=== PATIENT | male | born 1970 | race African-American/Black ===

== ENCOUNTER 2019-03-31 01:30 | Inpatient (IN) | payer OTHER ==
[~2019-03-31] VITALS: Ht 182.9 cm; Wt 83.5 kg
--- NOTE | 2019-03-31 01:50 | NUR ---
TO BED 5 AMBULATORY C/O R ARM TINGLING SENSATION AND BURNING PAIN SINCE 1699. PT AAOX4 NO ACUTE DISTRESS NOTED, RESP EVEN AND UNLABORED. PUPILS PERRLA, PT ABLE TO MOVE ALL EXTREMITIES WELL WITH BILATERAL EQUAL FIFTH HAND.
--- NOTE | 2019-03-31 02:03 | NUR ---
ER MD AT BEDSIDE TO EVAL PT WITH ORDERS RECEIVED. WILL CARRY OUT ORDERS.
[2019-03-31] MEDS ORDERED: ASPIRIN 81 MG TAB.CHEW ONE (02:11)
[2019-03-31] MEDS ORDERED: ACETAMINOPHEN ES 500 MG TABLET ONE (02:11)
--- NOTE | 2019-03-31 02:18 | NUR ---
PT MEDICATED ORDERED.
[2019-03-31] MEDS ORDERED: HYDROMORPHONE 1 MG/1 ML DISP.SYRIN ONE (02:19)
[2019-03-31 02:28] LABS: BASOPHILS % (AUTO) 0.7 % (0.0-2.0); HEMATOCRIT 42 % (39-51); LYMPHOCYTES # (AUTO) 1.1 /CMM (0.8-4.8); LYMPHOCYTES % (AUTO) 27.2 % (20.0-44.0); MEAN CORPUSCULAR HGB CONC 33 g/dl (31.0-36.0); MEAN CORPUSCULAR VOLUME 79 fL (80-96); MONOCYTES # (AUTO) 0.7 /CMM (0.1-1.30); MONOCYTES % (AUTO) 15.8 % (2.0-12.0); NEUTROPHILS # (AUTO) 2.3 /CMM (1.8-8.9); NEUTROPHILS % (AUTO) 55.3 % (43.0-81.0); PLATELET COUNT (AUTO) 93 /CMM (150-450); RED BLOOD CELL COUNT(AUTO) 5.34 MIL/uL (4.5-6.0); WHITE BLOOD COUNT (AUTO) 4.2 K/uL (4.3-11.0)
[2019-03-31] MEDS ORDERED: NITROGLYCERIN PACKET 1 GM PACKET TD ONE ×2 (02:30→03:00)
[2019-03-31] MEDS ORDERED: ACETAMINOPHEN ES 500 MG TABLET PO ONE (02:30)
[2019-03-31] MEDS ORDERED: ASPIRIN 81 MG TAB.CHEW PO ONE (02:30)
[2019-03-31] MEDS ORDERED: HYDROMORPHONE 1 MG/1 ML DISP.SYRIN IV ONE (02:30)
[2019-03-31 02:32] LABS: CALCIUM, SERUM 8.8 mg/dL (8.5-10.1); CREATININE 1.5 mg/dL (0.6-1.3); POTASSIUM 3.8 mmol/L (3.5-5.1)
[2019-03-31 02:46] LABS: ALBUMIN 3.6 g/dL (3.4-5.0); BILIRUBIN,DIRECT 0.1 mg/dL (0.0-0.2); BILIRUBIN,TOTAL 0.4 mg/dL (0.2-1.0); TOTAL PROTEIN, SERUM 6.6 g/dL (6.4-8.2)
--- NOTE | 2019-03-31 02:56 | NUR ---
WAREHOUSE HAND AT BEDSIDE.
[2019-03-31] MEDS ORDERED: NITROGLYCERIN 0.4 MG/TAB BOTTLE SL ONE (03:00)
[2019-03-31] MEDS ORDERED: NITROGLYCERIN 0.4 MG/TAB BOTTLE ONE (03:01)
[2019-03-31] MEDS ORDERED: NITROGLYCERIN PACKET 1 GM PACKET ONE (03:01)
--- NOTE | 2019-03-31 03:05 | NUR ---
PT DENIES CP OR R ARM PAIN AT THIS TIME. NITRO 0.4MG SL HELD PER ER MD ORDER.
--- NOTE | 2019-03-31 04:19 | NUR ---
REPORT CALLED TO DESIGN PRINTING MACHINE SET UP OPERATOR ELSA. WILL TRANSPORT PT VIA ACLS PROTOCOL.
[2019-03-31] MEDS ORDERED: IV NS 0.9% 1,000 ML IV PRN (05:17)
--- NOTE | 2019-03-31 05:22 | NUR ---
INVESTIGATOR OPERATOR NOTES ADMITTED A 48 Y/O MALE , A/OX 4 ABLE TO MAKE NEEDS KNOWN, WITH ADMITTING DIAGNOSES OF NON STEMI NO SOB NO DISTRESS NOTED , V/S STABLE AFEBRILE ON SR ,SB,SINUS ARRHYTHMIA,NO SOB NO DISTRESS NOTED PTS IS AMBULATORY ALL NEEDS ATTENDED TOO CALL LIGHT WITIN REACH KEPT PTS CLEN DRY AND COMFORTABLE,.
[2019-03-31 05:28] VITALS: BP 155/89
[2019-03-31] MEDS ORDERED: MAG HYDROX/AL HYDROX/SIMETH 30 ML UDC PO PRN (05:30)
[2019-03-31] MEDS ORDERED: ZOLPIDEM TARTRATE 5 MG TABLET PO PRN (05:30)
[2019-03-31] MEDS ORDERED: ACETAMINOPHEN 325 MG TABLET PO PRN (05:30)
[2019-03-31] MEDS ORDERED: HYDROCODONE/APAP 5/325MG 1 EACH TABLET PO PRN (05:30)
[2019-03-31] MEDS ORDERED: NITROGLYCERIN 0.4 MG/TAB BOTTLE SL PRN (05:30)
[2019-03-31] MEDS ORDERED: MAGNESIUM HYDROXIDE 30 ML UDC PO PRN (05:30)
[2019-03-31] MEDS ORDERED: ONDANSETRON HCL/PF 4 MG/2 ML VIAL IVP PRN (05:30)
[2019-03-31] MEDS ORDERED: Z GUARD REMEDY 2 OZ OINT TP PRN (05:30)
[2019-03-31 05:35] LABS: APPEARANCE,URINE Clear (CLEAR); BILIRUBIN,URINE Negative (NEGATIVE); BLOOD, URINE Negative Ery/uL (NEGATIVE); COLOR,URINE Yellow (YELLOW); KETONES,URINE Negative (NEGATIVE); LEUKOCYTE ESTERASE ,URINE Negative (NEGATIVE); NITRITE, URINE Negative (NEGATIVE); PH,URINE 5.5 (5.0-8.0); PROTEIN,URINE Negative (NEGATIVE); UGLUCOSE Negative (NEGATIVE); UROBILINOGEN,URINE 0.2 EU/dL (0.2)
[2019-03-31 08:00] VITALS: BP 152/97
--- NOTE | 2019-03-31 08:00 | NUR ---
DEBURRING AND TOOLING MACHINE OPERATOR NOTE RECEIVED PATIENT IN BED , ALERT , ORIENTED ON TELE MONITOR SR HR 69 .ON IVF ORDERED LT AC HL INTACT, FLASHED WELL , PLAN OF CARE DISCUSSED WITH PATIENT , HAVING BREAKOUT , ABLE TO EAT SELF ,C\O HEALABLE AND RT ARM PAIN 01/17, TYLENOL PO GIVEN. WILL F\U . CALL LIGHT WITHIN REACH , NO SOB NOTED AT THIS TIME , RESPIRATION EVEN UNLABORED , ON RA SAT 100% , BED IN SOHAN AND LOCKED POSITION
[2019-03-31] MEDS: METOPROLOL TARTRATE 25 MG TABLET PO SCH ×2 (08:03→20:33)
[2019-03-31] MEDS ORDERED: HYDR50TA3 PO (08:14)
[2019-03-31 09:02] LABS: CHOLESTEROL 156 mg/dL (<200); HDL CHOLESTEROL 61 mg/dL (40-60); LDL 84 mg/dL (0-99); TRIGLYCERIDES 26 mg/dL (30-150)
[2019-03-31] MEDS: ASPIRIN EC 81 MG TABLET.DR PO SCH (09:08)
--- NOTE | 2019-03-31 09:30 | NUR ---
COLD PATCHER NOT E SEEN BY DR HARDY AWARE TROP 0.246 STATED THAT WILL SEE PATIENT SOON, ALSO SPOKE WITH SR LEIGH NOTIFIED THAT PATIENT C\O PAIN RT ARM EARLIER TYLENOL GIVEN WITH RELIEF
--- NOTE | 2019-03-31 11:03 | NUR ---
TELE R NOTE CONSENT DONE FOR CT ANGIO
[2019-03-31] MEDS: IV NS 0.9% 1,000 ML IV PRN ×2 (11:20→20:34)
[2019-03-31 12:00] VITALS: BP 153/96
[2019-03-31] MEDS ORDERED: IV NS 0.9% 250 ML IV ONE (12:08)
[2019-03-31] MEDS ORDERED: IOHEXOL-350 100 ML VIAL IV ONE (12:08)
[2019-03-31] MEDS ORDERED: CT SWABBABLE VALVE TRANS SET 1 EA INFUS.SET MC ONE (12:08)
[2019-03-31] MEDS ORDERED: METOPROLOL TARTRATE INJ 5 MG/5 ML AMPUL ONE (12:25)
--- NOTE | 2019-03-31 14:56 | NUR ---
MEAT PULLER NOTE , BACK FROM CT CHEST ANGIO RESTING COMFORTABLY ,NO C\O CHEST DISCOMFORT AT THIS TIME ,WILL MONITOR
--- NOTE | 2019-03-31 15:35 | NUR ---
INSECTICIDE MAKER NOTE 2DECHO DONE ORDERED,CALL LIGHT WITHIN REACH , ALL NEEDS ATTENDED
[2019-03-31 16:00] VITALS: BP_SYST 131; BP_DIAS 76; BP_DIAS 82
--- NOTE | 2019-03-31 18:02 | NUR ---
LOCKSTITCH BACK MAKER NOTE CT NECK DONE , HAVING DINNER SELF ,NOT IN DISTRESS
[2019-03-31 20:00] VITALS: BP 146/73
--- NOTE | 2019-03-31 20:00 | NUR ---
HOMEOPATHIC DOCTOR NOTES RECEIVED PTS IN BED AWAKE A/OX4 ABLE TO MAKE NEEDS KNOWN, ON SR ON THE MONITOR R/A SATING 96%, NO SOB NO DISTRESS NOTED , V/S STABLE AFEBRILE , ALL NEEDS ATTENDED TOO CALL LIGHT WITHIN REACH . PTS IS AMBULATORY , C/O OF HEADACHE 02/16 NORCO ITAB GIVEN ORDERED WITH RELIEF. WITH IVF OF NS AT 125 CC/HR INFUSING WELL, ALL DUE MEDS GIVEN ORDERED , KEPT PTS CLEAN DRY AND COMFORTABLE, WILL CONTINUE TO MONITOR PTS.
[2019-03-31] MEDS ORDERED: ATORVASTATIN 10 MG TABLET PO SCH (22:00)
[2019-04-01] VITALS: BP 141/71
[2019-04-01] MEDS ORDERED: MORPHINE SULFATE INJ 2 MG/ML DISP.SYRIN IV ONE (03:30)
--- NOTE | 2019-04-01 03:30 | NUR ---
ELECTRONIC SERVICE TECHNICIAN NOTES PTS C/O OF HEADACHE 05/19 V/S BP 153/57 HR 59 RR 20 TEMP 98.1 PTS REFUSED NORCO , REQUESTING FOR MRI , SPOKE TO ABRAM RELAYED PTS CONDITION , AND REQUEST OF MRI .ABRAM DEXTER AWARE WITH ORDER MADE AND CARRIED OUT.
--- NOTE | 2019-04-01 03:49 | NUR ---
CHIEF RADIOLOGIC TECHNOLOGIST NOTES MORPHINE 2MG IV P GIVEN X1 ORDERED FOR HEADACHE. P-05/19.WILL CONTINUE TO MONITOR PTS.
[2019-04-01 04:00] VITALS: BP 153/84
[2019-04-01] MEDS: IV NS 0.9% 1,000 ML IV PRN (04:44)
--- NOTE | 2019-04-01 05:16 | NUR ---
FRAME WELDER CARGO UTILITY TRAILERS NOTES PTS IN BED SLEEPING , EASILY AROUSE, COMFORTABLE,NO SOB NO DISTRESS NOTED , V/S STABLE , PTS REMAINS ON IVF OF NS AT 125CC/HR,INFUSING WELL . WILL ENDORSE TO RN DAY SHIFT FOR CONTINUITY OF CARE.
[2019-04-01 06:55] LABS: BASOPHILS % (AUTO) 0.4 % (0.0-2.0); EOSINOPHILS % (AUTO) 1.3 % (0.0-6.0); HEMATOCRIT 42 % (39-51); HEMOGLOBIN 13.7 g/dL (13.5-17.5); LYMPHOCYTES # (AUTO) 0.9 /CMM (0.8-4.8); MEAN CORPUSCULAR HGB CONC 33 g/dl (31.0-36.0); MEAN CORPUSCULAR VOLUME 79 fL (80-96); MONOCYTES # (AUTO) 0.7 /CMM (0.1-1.30); MONOCYTES % (AUTO) 14.5 % (2.0-12.0); NEUTROPHILS # (AUTO) 3.1 /CMM (1.8-8.9); NEUTROPHILS % (AUTO) 65.8 % (43.0-81.0); PLATELET COUNT (AUTO) 91 /CMM (150-450); RED BLOOD CELL COUNT(AUTO) 5.32 MIL/uL (4.5-6.0); WHITE BLOOD COUNT (AUTO) 4.8 K/uL (4.3-11.0)
[2019-04-01 07:12] LABS: ALBUMIN 3.1 g/dL (3.4-5.0); BILIRUBIN,TOTAL 0.6 mg/dL (0.2-1.0); CALCIUM, SERUM 7.9 mg/dL (8.5-10.1); CREATININE 1.1 mg/dL (0.6-1.3); MAGNESIUM 1.5 mg/dL (1.8-2.4); PHOSPHORUS 2.9 mg/dL (2.5-4.9); POTASSIUM 3.9 mmol/L (3.5-5.1); T4 (THYROXINE) 6.5 ug/dL (4.7-13.3); THYROID STIMULATING HORMONE 1.699 uIU/mL (0.358-3.74); TOTAL PROTEIN, SERUM 5.9 g/dL (6.4-8.2)
--- NOTE | 2019-04-01 07:30 | NUR ---
RN NOTES RECEIVED PATIENT IN BED, A/A/OX4, ABLE TO MAKE NEEDS KNOWN. NOT ON CARDIO-RESPIRATORY DISTRESS, ON ROOM AIR, NO SOB NOTED AT THIS TIME. WITH COMPLAINTS OF HEADACHE BUT CLAIMED TO BE ABLE TO TOLERATE , REFUSED PAIN MEDICATION AND WAS REQUESTING FOR MRI-WILL DISCUSS WITH THE ATTENDING DURING ROUND. PATIENT SINUS RHYTHM ON THE MONITOR WITH HR ON THE 90'S. IV ACCESS ON THE LAC G [address] AND INTACT, FLUSHES WELL, WITH ONGOING IVF OF NS AT 125CC/HR. PATIENT ENCOURAGE TO VERBALIZE FEELING AND CONCERNS, SAFETY MEASURES OBSERVED AND MAINTAINED, CALL LIGHT PLACED WITHIN REACH, WILL CONTINUE TO MONITOR PATIENT
[2019-04-01 08:00] VITALS: BP 141/82
[2019-04-01 08:07] VITALS: BP 142/81
[2019-04-01] MEDS: METOPROLOL TARTRATE 25 MG TABLET PO SCH (08:07)
[2019-04-01] MEDS: ASPIRIN EC 81 MG TABLET.DR PO SCH (08:08)
[2019-04-01 08:11] LABS: EOSINOPHILS % (MANUAL) 1 % (0-4); LYMPHOCYTES % (MANUAL) 20 % (16-48); MONOCYTES % (MANUAL) 12 % (0-11.0); NEUTROPHILS % (MANUAL) 67 (42-76)
[2019-04-01] MEDS ORDERED: METO25TA20 PO (10:22)
--- NOTE | 2019-04-01 10:22 | NUR ---
RN NOTES SEEN AND EXAMINED BY DR. HOWARD. PATIENT'S CONCERNS RELAYED TO MD. PER LATER HE CAN HAVE MRI OUTPATIENT ALSO WITH ORDERS FOR DISCHARGE AFTER OT EVAL. ORDER NOTED AND CARRIED OUT. WILL INFORM OT
--- NOTE | 2019-04-01 12:00 | NUR ---
RN NOTES PATIENT SEEN BY OCCUPATIONAL THERAPIST
--- NOTE | 2019-04-01 12:50 | NUR ---
RN NOTES DISCHARGE FACILITATED AT THIS TIME. ALL CONCERNS AND QUESTIONS ADDRESSED APPROPRIATELY. ALL DISCHARGE AND MEDICATION INSTRUCTIONS GIVEN TO THE PATIENT. MEDICATION PRESCRIPTION GIVEN TO THE PATIENT. PATIENT NOT A CANDIDATE FOR PNEUMONIA VACCINE AND DECLINED BOTH INFLUENZA AND PNEUMONIA VACCINE WHEN OFFERED.SKIN INTACT. ALL BELONGINGS AND VALUABLES ACCOUNTED FOR AND RETURNED TO THE PATIENT, CLOTHES WORN. IV LINE AND ID BAND REMOVED. PATIENT LEFT AMBULATORY
== END 2019-04-01 12:50 | disposition home or self-care (01) | DRG 684 ==
LOC: ER 01:37 → TELE1 05:02 → MEDSG1 04-01 08:30
PROVIDERS: ADMIT Student in an Organized Health Care Education/Training Program; ATTEND Student in an Organized Health Care Education/Training Program
DX: N17.0 Acute kidney failure with tubular necrosis (principal); D69.6 Thrombocytopenia, unspecified; I13.10 Hypertensive heart and chronic kidney disease without heart failure, with stage 1 through stage 4 chronic kidney disease, or unspecified chronic kidney disease; N18.9 Chronic kidney disease, unspecified; G89.29 Other chronic pain; M47.892 Other spondylosis, cervical region; D70.9 Neutropenia, unspecified
CPT/HCPCS: 36415; 71045-TC; 72125-TC; 75574; 80048-TC; 80053-TC; 80061-TC; 80076-TC; 80305; 81000-TC; 83735-TC; 83880; 84100-TC; 84436-TC; 84443-TC; 84484-TC; 85025-TC; 85730-TC; 87081-TC; 93307-TC; 93971-TC; 97530-TC; G0378; J1170; J2270; J3490; J7030; J7050; Q9967

== ENCOUNTER 2020-09-10 09:23 | Emergency (ER) | payer MEDICAID, OTHER ==
[~2020-09-10] VITALS: Ht 182.9 cm; Wt 86.2 kg
[~2020-09-10 09:23] MED LIST: HYDR50TA4 PO; METO25TA20 PO
[2020-09-10 09:39] VITALS: BP 174/109
== END 2020-09-10 10:22 | disposition home or self-care (01) ==
LOC: ER 09:31
DX: U07.1 COVID-19 (principal); R43.8 Other disturbances of smell and taste; I10 Essential (primary) hypertension; Z79.899 Other long term (current) drug therapy
CPT/HCPCS: 99283; C9803; U0003

== ENCOUNTER 2023-03-03 23:39 | Emergency (ER) | payer MEDICAID, OTHER ==
[~2023-03-03] VITALS: Ht 182.9 cm; Wt 86.2 kg
[2023-03-04] MEDS ORDERED: DICYCLOMINE HCL INJ 20 MG/2 ML AMPUL IM ONE ×2 (00:30)
[2023-03-04] MEDS ORDERED: FAMOTIDINE/PF INJ 20 MG/2 ML VIAL IV ONE ×2 (00:30)
[2023-03-04] MEDS ORDERED: IV NS 0.9% 1,000 ML BAG IV ONE (00:30)
--- NOTE | 2023-03-04 00:30 | NUR ---
BIBSELF FROM HOME C/O DIARRHEA & GEN WEAKNESS X3 DAYS. TRAVELED FROM [place] 3 DAYS AGO. PATIENT IS AOX4. ABLE TO MAKE NEEDS KNOWN. PLACED COMFORTABLY IN BED. VITALS CHECKED.
[2023-03-04 00:51] LABS: BASOPHILS % (AUTO) 0.3 % (0.0-2.0); EOSINOPHILS % (AUTO) 0.5 % (0.0-6.0); HEMATOCRIT 46 % (39-51); LYMPHOCYTES % (AUTO) 20.8 % (20.0-44.0); MEAN CORPUSCULAR HGB CONC 32 g/dl (31.0-36.0); MEAN CORPUSCULAR VOLUME 79 fL (80-96); MONOCYTES # (AUTO) 0.6 K/uL (0.1-1.30); NEUTROPHILS % (AUTO) 66.4 % (43.0-81.0); PLATELET COUNT (AUTO) 128 K/uL (150-450); WHITE BLOOD COUNT (AUTO) 4.6 K/uL (4.3-11.0)
--- NOTE | 2023-03-04 00:56 | NUR ---
IV RONY G20 INSERTED ON LEFT FA. BLOOD DRAWN AND SENT TO LAB
[2023-03-04 01:02] LABS: CALCIUM, SERUM 8.9 mg/dL (8.5-10.1); CREATININE 1.2 mg/dL (0.6-1.3); POTASSIUM 3.9 mmol/L (3.5-5.1)
[2023-03-04 01:08] LABS: ALBUMIN 3.9 g/dL (3.4-5.0); BILIRUBIN,DIRECT 0.1 mg/dL (0.0-0.2); BILIRUBIN,TOTAL 0.6 mg/dL (0.2-1.0); TOTAL PROTEIN, SERUM 7.5 g/dL (6.4-8.2)
[2023-03-04] MEDS ORDERED: CIPR500T5 PO ×2 (01:57→02:15)
[2023-03-04] MEDS ORDERED: DICY10CA37 PO ×2 (01:57→02:15)
[2023-03-04] MEDS ORDERED: ONDA4TAB5 PO ×2 (01:57→02:15)
--- NOTE | 2023-03-04 02:24 | NUR ---
IV RONY REMOVED
[2023-03-04 02:25] VITALS: BP 125/80; TEMP 98.5; O2SAT 98
== END 2023-03-04 02:28 | disposition home or self-care (01) ==
LOC: ER 23:43
DX: K52.9 Noninfective gastroenteritis and colitis, unspecified (principal); I10 Essential (primary) hypertension; Z60.2 Problems related to living alone; Z79.899 Other long term (current) drug therapy
CPT/HCPCS: 99284; 96374; 85025; 80048; 83690; 80076; 36415; 96372; J3490; J7030; J0500

== ENCOUNTER 2025-04-29 16:37 | Emergency (ER) | payer OTHER ==
[~2025-04-29] VITALS: Ht 182.9 cm; Wt 90.7 kg
[~2025-04-29 16:37] MED LIST changes: +CIPR500T5 PO; +DICY10CA37 PO; +ONDA4TAB5 PO
[2025-04-29] MEDS: IV NS 0.9% 1,000 ML BAG IV ONE (18:21)
[2025-04-29 18:24] LABS: PLATELET COUNT (AUTO) 120 K/uL (150-450); RED BLOOD CELL COUNT(AUTO) 5.87 MIL/uL (4.5-6.0); RED CELL DISTRIBUTION WIDTH 16.1 % (11.5-15.0); WHITE BLOOD COUNT (AUTO) 4.5 K/uL (4.3-11.0)
[2025-04-29 18:33] LABS: CALCIUM, SERUM 9.2 mg/dL (8.5-10.1); CREATININE 1.5 mg/dL (0.6-1.3); SODIUM SERUM 139.0 mmol/L (136-145); UREA NITROGEN, BLOOD 12.0 mg/dL (7-18)
[2025-04-29 18:38] LABS: ASPARTATE AMINOTRANSFERASE 29.0 U/L (15-37); TOTAL PROTEIN, SERUM 7.5 g/dL (6.4-8.2)
[2025-04-29] MEDS ORDERED: GABA-532 PO (19:22)
[2025-04-29 19:58] VITALS: BP 149/109; TEMP 98.1; O2SAT 100
== END 2025-04-29 19:58 | disposition home or self-care (01) ==
LOC: ER 16:40
DX: G62.9 Polyneuropathy, unspecified (principal); E78.5 Hyperlipidemia, unspecified; I10 Essential (primary) hypertension; Z79.899 Other long term (current) drug therapy; Z60.2 Problems related to living alone
CPT/HCPCS: 99283; 96360; 85025; 36415; 80053; J7030